=== PATIENT | male | born 1995 | race African-American/Black ===

== ENCOUNTER 2017-01-10 23:09 | Emergency (ER) | payer OTHER ==
[~2017-01-10 23:09] MED LIST: MOTR200T PO
[2017-01-10 23:15] VITALS: BP 128/72; PULSE 90; RESP 16; TEMP 99.8; O2SAT 98
--- NOTE | 2017-01-10 23:50 | PD ---
HPI Chief Complaint: Cold / Flu Symptoms Time Seen by Provider: 23:47 Travel History International Travel<30 days: No Contact w/Intl Traveler<30days: No Traveled to known affect area: No History of Present Illness HPI 21-year-old black male presents to emergency department stating that he feels that he has the flu. He is been sick now for the past 3 days. He has had fever and chills, sore throat, congestion, runny nose, cough, nausea with 1 episode of vomiting yesterday, myalgias, arthralgias and general malaise. He's had decreased appetite but has been able to drink fluids. Symptoms are moderate. No exacerbating or palliative activity. PFSH Past Medical History Narrative Medical Denies diabetes and asthma Medical History: Denies Significant Hx Tetanus Vaccination: < 5 Years Past Surgical History Surgical History: No Previous Surgery Social History Alcohol Use: No Tobacco Use: No Substance Use: No Allergies-Medications (Allergen,Severity, Reaction): Coded Allergies: No Known Allergies (Unverified , 01/10/17) Reported Meds & Prescriptions Reported Meds & Active Scripts Active No Active Prescriptions or Reported Medications Review of Systems Except as stated in HPI: all other systems reviewed are Neg Physical Exam Narrative GENERAL: Well-developed, well-nourished in no acute distress. Nontoxic appearing. HEAD: Normocephalic, atraumatic. EYES: Pupils equal round and reactive. Extraocular motions intact. No scleral icterus. No injection or drainage. ENT: TMs clear without erythema. The external auditory canals clear. Nose: clear . Posterior pharynx is pink and moist. No tonsillar edema or exudate. Uvula midline. Airway patent. NECK: Trachea midline.Supple, nontender, moves head freely. No central bony tenderness or spasm. CARDIOVASCULAR: Regular rate and rhythm without murmurs, gallops, or rubs. RESPIRATORY: Clear to auscultation. Breath sounds equal bilaterally. No wheezes , rales, or rhonchi. GASTROINTESTINAL: Abdomen soft, non-tender, nondistended. No hepato-splenomegaly , or palpable masses. No guarding. EXTREMITIES: No clubbing, cyanosis, or edema. No joint tenderness, effusion, or edema noted. BACK: Nontender without deformity or crepitance. No flank tenderness. Data Data Last Documented VS Vital Signs Date Time Temp Pulse Resp B/P Pulse Ox O2 Delivery O2 Flow Rate FiO2 01/10/17 23:15 99.8 90 16 128/72 98 Room Air MDM Medical Decision Making Medical Screen Exam Complete: Yes Emergency Medical Condition: Yes Medical Record Reviewed: Yes Differential Diagnosis MDM: High Differential diagnoses: Pneumonia, bronchitis, URI, asthma, influenza-like illness, influenza Narrative Course Patient's given Motrin 600 mg by mouth. This is influenza-like illness Diagnosis Primary Impression: Influenza-like illness Patient Instructions: General Instructions Departure Forms: School Release, Please excuse from school until (free text option): No school for the next 3 -5 days. Tests/Procedures Additional Instructions: Rest. Increase fluids. Tylenol and Advil. Robitussin-DM. Followup with your Dr. in one week. Return to the ER for any problems. Med/Other Pt SpecificInfo: No Meds Exist/No RX given Scripts No Active Prescriptions or Reported Meds Disposition: 01 DISCHARGE HOME Condition: Stable Jesús Montenegro Jan 10, 2017 23:50
[2017-01-11] MEDS ORDERED: IBUPROFEN 600 MG TAB PO ONE
== END 2017-01-11 00:07 | disposition home or self-care (01) ==
LOC: NEPB 23:09
DX: J11.1 Influenza due to unidentified influenza virus with other respiratory manifestations (principal)
CPT/HCPCS: 99282

== ENCOUNTER 2017-02-21 00:35 | Emergency (ER) | payer OTHER ==
[~2017-02-21] VITALS: Ht 185.4 cm; Wt 78.0 kg
[2017-02-21 00:37] VITALS: BP 149/73; PULSE 95; RESP 16; TEMP 100.5; O2SAT 100
[2017-02-21] MEDS ORDERED: DEXAMETHASONE SOD PHOS 20 MG/5 ML VIAL IV PUSH ONE (01:00)
[2017-02-21] MEDS ORDERED: SODIUM CHLOR 0.9% 1000 ML INJ 1,000 ML IV ONE (01:00)
--- NOTE | 2017-02-21 01:04 | PD ---
HPI Chief Complaint: ENT Complaint Time Seen by Provider: 01:01 Travel History International Travel<30 days: No Contact w/Intl Traveler<30days: No Traveled to known affect area: No History of Present Illness HPI 22-year-old black male presents to emergency Department with complaints of sore throat and difficulty swallowing for over a week. He states that he was seen in emergency department 5 days ago and was given amoxicillin. He states he's been taking the antibiotics without any relief. He states he is having difficulty swallowing his saliva. He states that he is having nasal congestion , subjective fever and chills, ear pain, cough, congestion, shortness of breath , nausea. He denies any abdominal pain or diarrhea. No dysuria or frequency. PFSH Past Medical History Medical History: Denies Significant Hx Tetanus Vaccination: < 5 Years Past Surgical History Surgical History: No Previous Surgery Social History Alcohol Use: No Tobacco Use: No Substance Use: No Allergies-Medications (Allergen,Severity, Reaction): Coded Allergies: No Known Allergies (Unverified , 02/21/17) Reported Meds & Prescriptions Reported Meds & Active Scripts Active No Active Prescriptions or Reported Medications Review of Systems Except as stated in HPI: all other systems reviewed are Neg Physical Exam Narrative GENERAL: Well-developed, well-nourished in no acute distress. Nontoxic appearing. HEAD: Normocephalic, atraumatic. EYES: Pupils equal round and reactive. Extraocular motions intact. No scleral icterus. No injection or drainage. ENT: TMs clear without erythema. The external auditory canals clear. Nose: clear . Posterior pharynx is erythematous and moist. Positive tonsillar edema but no white exudate. Uvula midline. Airway patent. Patient has edema of the soft palate and the tonsils. There is no evidence of a peritonsillar abscess NECK: Trachea midline.Supple, nontender, moves head freely. No central bony tenderness or spasm. Positive tonsillar adenopathy CARDIOVASCULAR: Regular rate and rhythm without murmurs, gallops, or rubs. RESPIRATORY: Clear to auscultation. Breath sounds equal bilaterally. No wheezes , rales, or rhonchi. GASTROINTESTINAL: Abdomen soft, non-tender, nondistended. No hepato-splenomegaly , or palpable masses. No guarding. EXTREMITIES: No clubbing, cyanosis, or edema. No joint tenderness, effusion, or edema noted. BACK: Nontender without deformity or crepitance. No flank tenderness. Data Data Last Documented VS Vital Signs Date Time Temp Pulse Resp B/P Pulse Ox O2 Delivery O2 Flow Rate FiO2 02/21/17 00:37 100.5 95 16 149/73 100 Room Air Orders Complete Blood Count With Diff (02/21/17 00:57) Comprehensive Metabolic Panel (02/21/17 00:57) Group A Rapid Strep Screen (02/21/17 00:57) Iv Access Insert/Monitor (02/21/17 00:57) Monoscreen (02/21/17 00:57) Dexamethasone Inj (Decadron Inj) (02/21/17 01:00) Sodium Chlor 0.9% 1000 Ml Inj (Ns 1000 M (02/21/17 01:00) Qkfz-Xoig-Cjfu Liq (Magic Mouthwash Adul (02/21/17 01:05) Ondansetron Inj (Zofran Inj) (02/21/17 01:52) Strep Culture (Group A) (02/21/17 01:20) Clindamycin Inj (Cleocin Inj) (02/21/17 02:15) Labs Laboratory Tests Test 02/21/17 01:20 White Blood Count 17.7 TH/MM3 Red Blood Count 5.16 MIL/MM3 Hemoglobin 14.2 GM/DL Hematocrit 43.0 % Mean Corpuscular Volume 83.3 FL Mean Corpuscular Hemoglobin 27.4 PG Mean Corpuscular Hemoglobin 32.9 % Concent Red Cell Distribution Width 13.3 % Platelet Count 265 TH/MM3 Mean Platelet Volume 9.3 FL Neutrophils (%) (Auto) 78.7 % Lymphocytes (%) (Auto) 12.0 % Monocytes (%) (Auto) 8.6 % Eosinophils (%) (Auto) 0.5 % Basophils (%) (Auto) 0.2 % Neutrophils # (Auto) 13.9 TH/MM3 Lymphocytes # (Auto) 2.1 TH/MM3 Monocytes # (Auto) 1.5 TH/MM3 Eosinophils # (Auto) 0.1 TH/MM3 Basophils # (Auto) 0.0 TH/MM3 CBC Comment DIFF FINAL Differential Comment Sodium Level 136 MEQ/L Potassium Level 3.7 MEQ/L Chloride Level 101 MEQ/L Carbon Dioxide Level 28.1 MEQ/L Anion Gap 7 MEQ/L Blood Urea Nitrogen 10 MG/DL Creatinine 1.15 MG/DL Estimat Glomerular Filtration 96 ML/MIN Rate Random Glucose 106 MG/DL Calcium Level 9.5 MG/DL Total Bilirubin 0.5 MG/DL Aspartate Amino Transf 25 U/L (AST/SGOT) Alanine Aminotransferase 36 U/L (ALT/SGPT) Alkaline Phosphatase 79 U/L Total Protein 8.3 GM/DL Albumin 3.9 GM/DL Monoscreen NEG MDM Medical Decision Making Medical Screen Exam Complete: Yes Emergency Medical Condition: Yes Medical Record Reviewed: Yes Interpretation(s) Rapid strep: Negative [facility] [place]: Negative Laboratory Tests Test 02/21/17 01:20 White Blood Count 17.7 TH/MM3 Red Blood Count 5.16 MIL/MM3 Hemoglobin 14.2 GM/DL Hematocrit 43.0 % Mean Corpuscular Volume 83.3 FL Mean Corpuscular Hemoglobin 27.4 PG Mean Corpuscular Hemoglobin 32.9 % Concent Red Cell Distribution Width 13.3 % Platelet Count 265 TH/MM3 Mean Platelet Volume 9.3 FL Neutrophils (%) (Auto) 78.7 % Lymphocytes (%) (Auto) 12.0 % Monocytes (%) (Auto) 8.6 % Eosinophils (%) (Auto) 0.5 % Basophils (%) (Auto) 0.2 % Neutrophils # (Auto) 13.9 TH/MM3 Lymphocytes # (Auto) 2.1 TH/MM3 Monocytes # (Auto) 1.5 TH/MM3 Eosinophils # (Auto) 0.1 TH/MM3 Basophils # (Auto) 0.0 TH/MM3 CBC Comment DIFF FINAL Differential Comment Sodium Level 136 MEQ/L Potassium Level 3.7 MEQ/L Chloride Level 101 MEQ/L Carbon Dioxide Level 28.1 MEQ/L Anion Gap 7 MEQ/L Blood Urea Nitrogen 10 MG/DL Creatinine 1.15 MG/DL Estimat Glomerular Filtration 96 ML/MIN Rate Random Glucose 106 MG/DL Calcium Level 9.5 MG/DL Total Bilirubin 0.5 MG/DL Aspartate Amino Transf 25 U/L (AST/SGOT) Alanine Aminotransferase 36 U/L (ALT/SGPT) Alkaline Phosphatase 79 U/L Total Protein 8.3 GM/DL Albumin 3.9 GM/DL Monoscreen NEG Differential Diagnosis MDM: High Differential diagnoses: Strep throat, viral pharyngitis, mono, peritonsillar abscess, retropharyngeal abscess, Tho's angina Narrative Course IV access is obtained. Patient's given Decadron 10 mg IV, 1 L normal saline bolus, Magic mouthwash. Basic chemistry, mono and rapid strep ordered. Patient has an elevated white count of 17,000. The rapid strep and mono are negative. Patient is given clindamycin 900 mg IV. This is acute pharyngitis Diagnosis Primary Impression: Acute pharyngitis Qualified Code: J02.9 - Acute pharyngitis, unspecified etiology Patient Instructions: General Instructions Additional Instructions: Rest. Force fluids. Saltwater gargles. Tylenol and Advil. Chloraseptic [place] Cepastat lozenge. Clindamycin, prednisone, Magic mouthwash Follow-up with a primary care doctor in one week. Return to the ER if any problems. Med/Other Pt SpecificInfo: Prescription(s) given Scripts Clindamycin (Cleocin)150 Mg [id number] Mg PO Q6H #56 CAP Prov:Ryan Cash MD 02/21/17 Prednisone (Deltasone)20 Mg Tab20 Mg PO BID #10 TAB Prov:Ryan Cash MD 02/21/17 Qeplcutb-Izwthvigxvdsefh-Qnkjtjsin Liq (Magic Mouthwash Adult Liq)120 Ml Susp5 Ml SWISH-SWAL Q2HR #120 ML Each 5mL contains: Nystatin 200,000units, Diphenhydramine 4.25mg, Viscous Lidocaine 10mg, Myrick syrup 0.8 mL Prov:Ryan Cash MD 02/21/17 Disposition: 01 DISCHARGE HOME Condition: Stable Jesús Montenegro February 21, 2017 01:04
[2017-02-21] MEDS ORDERED: NYSTAT/DIPHENHY/LIDO MOUTHWASH (Adult) 120ML SWISH-SWAL SCH (01:05)
[2017-02-21 01:34] LABS: AUTOMATED NEUTROPHIL # 13.9 TH/MM3 (1.8-7.7); BASOPHIL % 0.2 % (0.0-2.0); EOSINOPHIL # 0.1 TH/MM3 (0-0.4); EOSINOPHIL % 0.5 % (0.0-4.0); HEMO FLAGS DIFF FINAL; LYMPHOCYTE # 2.1 TH/MM3 (1.0-4.8); MEAN CELL VOLUME 83.3 FL (80.0-100.0); MEAN CORPUSCULAR HEMOGLOBIN 27.4 PG (27.0-34.0); MEAN CORPUSCULAR HGB CONC 32.9 % (32.0-36.0); MONO % 8.6 % (0.0-8.0); NEUT % 78.7 % (16.0-70.0); PLATELET COUNT 265 TH/MM3 (150-450); RED BLOOD COUNT 5.16 MIL/MM3 (4.50-5.90); RED CELL DISTRIBUTION WIDTH 13.3 % (11.6-17.2); WHITE BLOOD COUNT 17.7 TH/MM3 (4.0-11.0)
[2017-02-21] MEDS ORDERED: ONDANSETRON HCL 4 MG/2 ML VIAL ONE (01:52)
[2017-02-21 01:57] LABS: ALT (GPT) 36 U/L (12-78); ANION GAP 7 MEQ/L (5-15); AST (GOT) 25 U/L (15-37); BICARBONATE 28.1 MEQ/L (21.0-32.0); BLOOD UREA NITROGEN 10 MG/DL (7-18); CHLORIDE 101 MEQ/L (98-107); GLOMERULAR FILTRATION RATE 96 ML/MIN (>89); POTASSIUM 3.7 MEQ/L (3.5-5.1); SODIUM (NA) 136 MEQ/L (136-145)
[2017-02-21 01:59] LABS: ALKALINE PHOSPHATASE 79 U/L (45-117); TOTAL BILIRUBIN ADULT 0.5 MG/DL (0.2-1.0)
[2017-02-21] MEDS ORDERED: CLINDAMYCIN INJ 900 MG in SODIUM CHLORIDE 0.9% INJ 100 ML IV ONE (02:15)
[2017-02-21] MEDS ORDERED: MAGICADU2 SWISH-SWAL (02:31)
[2017-02-21] MEDS ORDERED: CLIN150 PO (02:31)
[2017-02-21] MEDS ORDERED: PRED-503 PO (02:31)
[2017-02-21] MEDS ORDERED: ONDANSETRON HCL 4 MG/2 ML VIAL IV PUSH ONE (02:45)
== END 2017-02-21 04:28 | disposition home or self-care (01) ==
LOC: NEPK 00:35
DX: J02.9 Acute pharyngitis, unspecified (principal)
CPT/HCPCS: 80053; 85025; 86308; 87081; 87880; 96361; 96365; 96375; 96376; 99284; J1100; J2405; J7030